=== PATIENT | male | born 1930 | race Caucasian/White ===

== ENCOUNTER → 2016-07-20 | Outpatient (CLI) | payer MEDICARE ==
--- NOTE | 2016-07-20 10:37 | NM ---
EXAMINATION TYPE: NM stress cardiolite complete DATE OF EXAM: 07/20/2016 10:26 AM COMPARISON: NONE HISTORY: Hypertension TECHNIQUE: After the intravenous administration of 11 mCi Tc 99m Sestamibi - Rest images obtained 45 minutes post injection. The patient exercised using a ANA MARIA protocol and 1 minute prior to peak ex ercise was injected with 27 mCi Tc 99m Sestamibi - Stress images obtained 10 minutes post injection. FINDINGS: Targeted heart rate was achieved during performance of the study. Review of stress and rest SPECT rene ges demonstrates no distinct perfusion abnormality. Gated analysis shows normal wall motion with an estimated left ventricular ejection fraction of 67 %. IMPRESSION: No scintigraphic evidence for reversible ischemia
--- NOTE | 2016-07-20 10:46 | EST ---
DATE OF SERVICE: 07/20/2016 AGE: 86Y SEX: M HT: 5'7" WT: 145 lbs. Protocol Tylor: X Other: Cardiolite Stage: Dur. of Exercise: 3:40 *Heart Rate Blood Pressure *Rest: 66 Rest: 136/69 * *Max. Achieved: 126 Maximum BP: 185/60 85% PMHR: 116 100% PMHR: 136 *METS: 5 INDICATIONS: Hypertension. MEDICATIONS: Baseline EKG shows sinus rhythm, normal axis, normal intervals. Patient exercised on Tylor protocol for a total of 3 minutes and 40 seconds achieving 5 METs; 92% of predicted maximal heart rate without chest pain or diagnostic ST segment depression. CONCLUSION: 1. Poor exercise tolerance. 2. Negative stress test by EKG criteria. 3. Cardiolite portion of the stress test will be reported separately.
== END | disposition home or self-care (01) ==
LOC: RADNMMAIN 07:51
PROVIDERS: ATTEND Internal Medicine
DX: I10 Essential (primary) hypertension (principal); R55 Syncope and collapse
CPT/HCPCS: 93017; 78452; A9500

== ENCOUNTER 2018-05-01 12:47 | Emergency (ER) | payer MEDICARE ==
[2018-05-01 13:04] VITALS: TEMP 97.8
[2018-05-01] MEDS ORDERED: SODIUM CHLORIDE 0.9% 1,000 ML IV STA (13:33)
--- NOTE | 2018-05-01 13:33 | ED ---
Neuro HPI - General Chief Complaint: Neuro Symptoms/Deficit Stated Complaint: Had a poss stroke Time Seen by Provider: 05/01/18 13:33 Source: patient, family, RN notes reviewed, old records reviewed Mode of arrival: wheelchair Limitations: no limitations - History of Present Illness Is the patient presenting with stroke symptoms?: Yes Last Known Well Date: 04/30/18 -: hour(s) (12) Initial Comments: This is an 88-year-old male the ER for evaluation. Patient resents today for evaluation of strokelike symptoms, history of high blood pressure cholesterol diabetes. Patient coming in for slurring speech and drooling and left-sided weakness left sided facial weakness. Patient himself denies headache no trauma. Patient is not currently on blood thinners Location: speech, left face, dysarthria, left arm History of same: No Place: home Severity: moderate Quality: weak, numb, tingling Improves With: none Worsens With: none On Anticoagulants: No Context: other (Patient spoke with Symptoms) Associated Symptoms: denies other symptoms - Related Data Home Medications: Home Medications Medication Instructions Recorded Confirmed Aspirin EC [Ecotrin Low Dose] 81 mg PO DAILY 05/01/18 05/01/18 Atenolol 100 mg PO BID 05/01/18 05/01/18 Benazepril HCl 20 mg PO BID 05/01/18 05/01/18 Cholecalciferol [Vitamin D3] 1,000 unit PO DAILY 05/01/18 05/01/18 Levothyroxine Sodium [Synthroid] 25 mcg PO DAILY 05/01/18 05/01/18 Lovastatin [Mevacor] 10 mg PO HS 05/01/18 05/01/18 amLODIPine [Norvasc] 10 mg PO DAILY 05/01/18 05/01/18 diphenhydrAMINE [Benadryl] 25 mg PO HS 05/01/18 05/01/18 hydrALAZINE HCL 25 mg PO BID 05/01/18 05/01/18 Allergies/Adverse Reactions: Allergies Allergy/AdvReac Type Severity Reaction Status Date / Time codeine Allergy Unknown Verified 05/01/18 13:33 FLU SHOT Allergy Rash/Hives Uncoded 05/01/18 13:33 Review of Systems ROS Statement: Those systems with pertinent positive or pertinent negative responses have been documented in the HPI. ROS Other: All systems not noted in ROS Statement are negative. General Exam - General Exam Comments Initial Comments: NIH of 2 Limitations: no limitations General appearance: alert, in no apparent distress Head exam: Present: atraumatic, normocephalic, normal inspection Eye exam: Present: normal appearance, PERRL, EOMI. Absent: scleral icterus, conjunctival injection, periorbital swelling ENT exam: Present: normal exam, mucous membranes moist Neck exam: Present: normal inspection. Absent: tenderness, meningismus, lymphadenopathy Respiratory exam: Present: normal lung sounds bilaterally. Absent: respiratory distress, wheezes, rales, rhonchi, stridor Cardiovascular Exam: Present: regular rate, normal rhythm, normal heart sounds. Absent: systolic murmur, diastolic murmur, rubs, gallop, clicks GI/Abdominal exam: Present: soft, normal bowel sounds. Absent: distended, tenderness, guarding, rebound, rigid Extremities exam: Present: normal inspection, full ROM, normal capillary refill. Absent: tenderness, pedal edema, joint swelling, calf tenderness Back exam: Present: normal inspection Neurological exam: Present: alert, oriented X3, CN II-XII intact Psychiatric exam: Present: normal affect, normal mood Skin exam: Present: warm, dry, intact, normal color. Absent: rash Stroke MDM - Lab Data Result diagrams: 05/01/18 13:30 05/01/18 13:30 Lab Results 05/01/18 05/01/18 05/01/18 Range/Units 13:30 13:30 13:30 WBC 10.9 H (3.8-10.6) k/uL RBC 4.08 L (4.30-5.90) m/uL Hgb 12.4 L (13.0-17.5) gm/dL Hct 36.0 L (39.0-53.0) % MCV 88.4 (80.0-100.0) fL MCH 30.4 (25.0-35.0) pg MCHC 34.4 (31.0-37.0) g/dL RDW 14.2 (11.5-15.5) % Plt Count 212 (150-450) k/uL Neutrophils % 86 % Lymphocytes % 7 % Monocytes % 4 % Eosinophils % 2 % Basophils % 0 % Neutrophils # 9.4 H (1.3-7.7) k/uL Lymphocytes # 0.8 L (1.0-4.8) k/uL Monocytes # 0.5 (0-1.0) k/uL Eosinophils # 0.2 (0-0.7) k/uL Basophils # 0.0 (0-0.2) k/uL PT (9.0-12.0) sec INR (<1.2) APTT (22.0-30.0) sec Sodium 130 L (137-145) mmol/L Potassium 5.0 (3.5-5.1) mmol/L Chloride 103 (98-107) mmol/L Carbon Dioxide 21 L (22-30) mmol/L Anion Gap 6 mmol/L BUN 37 H (9-20) mg/dL Creatinine 1.21 (0.66-1.25) mg/dL Est GFR (CKD-EPI)AfAm 63 (>60 ml/min/1.73 sqM) Est GFR (CKD-EPI)NonAf 54 (>60 ml/min/1.73 sqM) Glucose 234 H (74-99) mg/dL Calcium 8.9 (8.4-10.2) mg/dL Total Bilirubin 0.4 (0.2-1.3) mg/dL AST 19 (17-59) U/L ALT 30 (21-72) U/L Alkaline Phosphatase 64 (38-126) U/L Total Creatine Kinase 49 L (55-170) U/L CK-MB (CK-2) 2.8 H (0.0-2.4) ng/mL CK-MB (CK-2) Rel Index 5.7 Troponin I 0.012 (0.000-0.034) ng/mL Total Protein 5.4 L (6.3-8.2) g/dL Albumin 3.0 L (3.5-5.0) g/dL 05/01/18 Range/Units 13:30 WBC (3.8-10.6) k/uL RBC (4.30-5.90) m/uL Hgb (13.0-17.5) gm/dL Hct (39.0-53.0) % MCV (80.0-100.0) fL MCH (25.0-35.0) pg MCHC (31.0-37.0) g/dL RDW (11.5-15.5) % Plt Count (150-450) k/uL Neutrophils % % Lymphocytes % % Monocytes % % Eosinophils % % Basophils % % Neutrophils # (1.3-7.7) k/uL Lymphocytes # (1.0-4.8) k/uL Monocytes # (0-1.0) k/uL Eosinophils # (0-0.7) k/uL Basophils # (0-0.2) k/uL PT 9.8 (9.0-12.0) sec INR 0.9 (<1.2) APTT 21.1 L (22.0-30.0) sec Sodium (137-145) mmol/L Potassium (3.5-5.1) mmol/L Chloride (98-107) mmol/L Carbon Dioxide (22-30) mmol/L Anion Gap mmol/L BUN (9-20) mg/dL Creatinine (0.66-1.25) mg/dL Est GFR (CKD-EPI)AfAm (>60 ml/min/1.73 sqM) Est GFR (CKD-EPI)NonAf (>60 ml/min/1.73 sqM) Glucose (74-99) mg/dL Calcium (8.4-10.2) mg/dL Total Bilirubin (0.2-1.3) mg/dL AST (17-59) U/L ALT (21-72) U/L Alkaline Phosphatase (38-126) U/L Total Creatine Kinase (55-170) U/L CK-MB (CK-2) (0.0-2.4) ng/mL CK-MB (CK-2) Rel Index Troponin I (0.000-0.034) ng/mL Total Protein (6.3-8.2) g/dL Albumin (3.5-5.0) g/dL - NIH Stroke Scale 1a. Level of Consciousness: (0) alert 1b. LOC Questions: (0) answers correctly 1c. LOC Commands: (0) performs tasks correctly 2. Best Gaze: (0) normal 3. Visual: (0) no visual loss 4. Facial Palsy: (2) partial paralysis 5a. Motor Arm Left: (0) no drift 5b. Motor Arm Right: (0) no drift 6a. Motor Leg Left: (0) no drift 6b. Motor Leg Right: (0) no drift 7. Limb Ataxia: (0) absent 8. Sensory: (0) normal 9. Best Language: (0) no aphasia 10. Dysarthria: (0) normal 11. Extinction/Inattention: (0) no abnormality - Thrombolytic Inclusion/Exclusion Thrombolytic Exclusion Criteria: Symptom Onset > 3 Hours - Medical Decision Making 88 male the ER for evaluation, patient presenting code stroke, patient transferred will be transferred to neuro ICU for evaluation and care - Radiology Data Radiology results: report reviewed (CTA CT brain show right and left ICA occlusion about 90%), image reviewed - EKG Data -: EKG Interpreted by Me Past Medical History Past Medical History: Diabetes Mellitus, Hyperlipidemia, Hypertension, Thyroid Disorder History of Any Multi-Drug Resistant Organisms: None Reported Past Surgical History: Hernia Repair Past Psychological History: No Psychological Hx Reported Smoking Status: Never smoker Past Alcohol Use History: Rare Past Drug Use History: None Reported Course Vital Signs 05/01/18 05/01/18 05/01/18 13:00 13:45 14:00 Temperature 97.8 F Pulse Rate 67 73 70 Respiratory 18 18 18 Rate Blood Pressure 117/61 118/59 120/68 O2 Sat by Pulse 97 98 97 Oximetry 05/01/18 05/01/18 14:15 14:30 Temperature Pulse Rate 68 69 Respiratory 17 19 Rate Blood Pressure 119/62 114/64 O2 Sat by Pulse 97 96 Oximetry - Reevaluation(s) Reevaluation #1: 05/01/18 14:24 Code stroke was paged on patient arrival to emergency room Reevaluation #2: 05/01/18 15:24 Speaking with transfer stroke team, we will likely patient transferred to [facility]. 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 Specs Out of Hospital Transfer - Requested Specifics: Other Emergency Center ([facility]
[2018-05-01 14:05] LABS: Calcium 8.9 mg/dL (8.4-10.2); Total Bilirubin 0.4 mg/dL (0.2-1.3); Total Protein 5.4 g/dL (6.3-8.2)
[2018-05-01 14:14] LABS: INR 0.9 (<1.2); Prothrombin Time 9.8 sec (9.0-12.0)
[2018-05-01 14:15] LABS: Basophils % (A) 0 %; Eosinophils # (A) 0.2 k/uL (0-0.7); Eosinophils % (A) 2 %; HGB 12.4 gm/dL (13.0-17.5); Lymphocytes # (A) 0.8 k/uL (1.0-4.8); Lymphocytes % (A) 7 %; MCH 30.4 pg (25.0-35.0); MCHC 34.4 g/dL (31.0-37.0); MCV 88.4 fL (80.0-100.0); Mean Platelet Volume 6.1; Monocytes # (A) 0.5 k/uL (0-1.0); Monocytes % (A) 4 %; Neutrophils # (A) 9.4 k/uL (1.3-7.7); Neutrophils % (A) 86 %; Platelet Count 212 k/uL (150-450); RBC 4.08 m/uL (4.30-5.90); RDW 14.2 % (11.5-15.5); WBC 10.9 k/uL (3.8-10.6)
[2018-05-01 14:22] LABS: Partial Thromboplastin Time 21.1 sec (22.0-30.0)
--- NOTE | 2018-05-01 14:26 | CT ---
EXAMINATION TYPE: CT brain wo con for TPA DATE OF EXAM: 05/01/2018 COMPARISON: None HISTORY: Neurologic deficit Unenhanced CT of the brain was performed. The ventricles, basal cisterns and sulci overlying the cerebral convexities demonstrate mild enlargem ent. Decreased attenuation right occipital lobe may reflect the relatively recent insult. There is no evidence for intracranial hemorrhage or sulcal effacement. There is decreased attenuation about the periventricular white matter and deep white matter of both c erebral hemispheres, compatible with chronic small vessel ischemia. Differential diagnosis does inclu de demyelination. No mass effects are seen.No midline shift. Osseous calvarium is intact. If symptoms persist consider MRI. IMPRESSION: 1. Decreased attenuation right occipital lobe may reflect relatively recent insult.
--- NOTE | 2018-05-01 14:32 | CT ---
EXAMINATION TYPE: CT angio head neck DATE OF EXAM: 05/01/2018 COMPARISON: None HISTORY: Neurologic deficit CONTRAST: 100 cc [id number]. Combination Contrast CTA cervical carotids and [place] CTA cervical carotids with 3-D recons truction Contrast CTA of the cervical carotids was performed 3-D reconstruction imaging obtained at a separate workstation. Right carotid system: Mild plaque is seen of the right common carotid artery. There is severe plaque also noted at the carotid bulb and proximal ICA. Estimated diameter reduction right ICA greater laverne n 90%. ECA is patent. Right vertebral artery appears unremarkable. Left carotid system: Mild plaque is seen of the left common carotid artery. There is moderate plaque also noted at the carotid bulb and proximal ICA. Estimated diameter reduction left ICA estimated at 50%. ECA is patent. Left vertebral artery appears unremarkable. IMPRESSION: 1. Estimated diameter reduction right ICA greater than 90%. 2.Estimated diameter reduction left ICA estimated at 50%. CTA [place] with 3-D reconstruction Contrast CTA of the [place] was performed 3-D reconstruction imaging obtained at a separate workstation. Vertebrobasilar system as well as intracranial portions of the internal carotid arteries and their ma ksenia tributaries are patent. I do not see evidence for sizable aneurysm or vascular malformation. Pl ease note MRI provides greater sensitivity and specificity. Visualized brain appears grossly unremar kable. IMPRESSION: 1. No siginificant abnormality.
[2018-05-01 14:34] LABS: Creatine Kinase MB 2.8 ng/mL (0.0-2.4); Troponin I 0.012 ng/mL (0.000-0.034)
--- NOTE | 2018-05-01 15:14 | XR ---
EXAMINATION TYPE: XR chest 2V DATE OF EXAM: 05/01/2018 COMPARISON: NONE HISTORY: Altered mental status TECHNIQUE: Frontal and lateral views of the chest are obtained. FINDINGS: There is no focal air space opacity, pleural effusion, or pneumothorax seen. The cardiac silhouette size is within normal limits. There is eventration of the right hemidiaphragm. The aorta i s dense. The osseous structures are intact. IMPRESSION: No acute cardiopulmonary process.
[2018-05-01] MEDS ORDERED: CLOPIDOGREL 75 MG TAB PO STA (15:39)
[2018-05-01 16:47] VITALS: BP 117/72; PULSE 75; RESP 14
== END 2018-05-01 17:20 | disposition other institution (70) ==
LOC: EC 12:47
DX: I63.233 Cerebral infarction due to unspecified occlusion or stenosis of bilateral carotid arteries (principal); R29.702 NIHSS score 2; E78.5 Hyperlipidemia, unspecified; I10 Essential (primary) hypertension; Z79.82 Long term (current) use of aspirin; Z79.890 Hormone replacement therapy; Z79.899 Other long term (current) drug therapy; Z88.5 Allergy status to narcotic agent; Z88.7 Allergy status to serum and vaccine
CPT/HCPCS: 36415; 93005; 80053; 82550; 82553; 84484; 85025; 85610; 85730; 71046; 70496; 70450; 70498; 99285; 96360; Q9967